=== PATIENT | male | born 1975 | race Hispanic/Latino ===

== ENCOUNTER 2017-08-26 07:47 | Day surgery (SDC) | payer MEDICAID ==
[~2017-08-26 07:47] MED LIST: ATOR40TA71 PO; DULO30CA51 PO; GABA-318 PO; IBUP-2071 PO; LOSA50TA37 PO; NITR0.4T50 SL; OMEP40CA37 PO; SODIUM CHLORIDE 0.9% 1000ML 1,000 ML IV ONE; SOLI10TA PO; TAMS0.4C32 PO; ZOLP10TA6 PO
[2017-08-26 08:20] VITALS: BP 140/96
[2017-08-26] MEDS ORDERED: FENTANYL CITRATE PF 50 MCG/1 ML 2ML VIAL ONE (09:24)
[2017-08-26] MEDS ORDERED: PROPOFOL 10 MG/ML 20ML VIAL IV ONE (09:24)
[2017-08-26] MEDS ORDERED: LIDOCAINE HCL 2% 20ML ONE (09:26)
[2017-08-26] MEDS ORDERED: LIDOCAINE HCL 1% 20 ML VIAL ONE (09:26)
[2017-08-26 09:38] VITALS: BP 109/79
[2017-08-26 09:45] VITALS: BP 113/83
[2017-08-26 09:49] VITALS: BP 120/86
[2017-08-26 09:54] VITALS: BP 125/89
== END 2017-08-26 10:09 | disposition home or self-care (01) ==
LOC: DAH 07:47 → ENDO 07:47
PROVIDERS: ATTEND Internal Medicine
DX: K29.60 Other gastritis without bleeding (principal); K21.9 Gastro-esophageal reflux disease without esophagitis; I10 Essential (primary) hypertension; F41.9 Anxiety disorder, unspecified; F32.9 Major depressive disorder, single episode, unspecified; K22.8 Other specified diseases of esophagus; E11.9 Type 2 diabetes mellitus without complications; Z68.38 Body mass index [BMI] 38.0-38.9, adult; E78.4 Other hyperlipidemia
CPT/HCPCS: 43239; 82948 ×2; 88305; 88313; 88342; A4606; J2704; J3010; J3490; J7030